=== PATIENT | male | born 1985 | race Two or more races ===

== ENCOUNTER 2018-11-08 22:32 | Emergency (ER) | payer SELFPAY ==
[2018-11-08 22:33] VITALS: BP 119/70
--- NOTE | 2018-11-08 22:41 | ER Report ---
History and Physical Time Seen By MD: 22:29 HPI/ROS CHIEF COMPLAINT: intoxication HISTORY OF PRESENT ILLNESS: This is a 33 year old male. He was found on the ground by his truck blocking the entrance of the [place]. 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 He was covered in emesis. He denies injuries or pain. He is alert and able to tell us where he is and what he did today. Denies any illnesses. Asking us to call his boss. Very animated, but cooperative otherwise. Allergies: Coded Allergies: No Known Allergies (Verified Allergy, Mild, 11/08/18) Home Meds Discontinued Reported Medications Sucralfate (Carafate) 1 Gm Tab, 1 GM PO ACHS, 0 Refills ON EMPTY STOMACH 04/12/08 Lansoprazole (Prevacid) 30 Mg Capsule.dr, 30 MG PO QDAY, 0 Refills 04/12/08 Sucralfate (Carafate) 1 G/10 Ml Oral.susp, 1 GM PO QID, #120 0 Refills 04/12/08 Lansoprazole (Prevacid) 30 Mg Capsule.dr, 30 MG PO QDAY, #30 0 Refills 04/12/08 Bupropion Hcl (Wellbutrin Xl) 300 Mg Tab.sr.24h, 300 MG PO QDAY, 0 Refills 04/12/08 Reviewed Nurses Notes: Yes Constitutional Vital Sign - Last 24 Hours 11/08/18 22:33 Temp 97.9 Pulse 84 Resp 20 B/P (MAP) 119/70 Pulse Ox 92 O2 Delivery Room Air Physical Exam General Appearance: The patient is alert. Intoxicated. Eyes: Pupils are equal, round. Reactive to light. No pallor, injection or icterus. Extraocular movements are intact. ENT: Mucous membranes are moist. Normal oral mucosa. Posterior oropharynx is normal. Normal tympanic membranes and canals. Neck: Supple and non tender. No lymphadenopathy. Respiratory: Lungs are clear to auscultation. Cardiovascular: Regular rate and rhythm. No murmurs, gallops or rubs. Normal capillary refill. Gastrointestinal: Abdomen is soft and non tender. Nondistended. Normal active bowel sounds. Neurological: Alert and oriented x3. Other than intoxicated, no deficits. Skin: Warm and dry. No rashes. Dirty from working, but otherwise no abrasions or lacerations noted. Musculoskeletal: Extremities are nontender. Full range of motion. No pain in pelvis. No tenderness in palpation of the cervical, thoracic and lumbar spine. DIFFERENTIAL DIAGNOSIS: After history and physical exam, differential diagnosis was considered for alcohol intoxication Medical Decision Making ED Course/Re-evaluation ED Course No other problems noted. He is being arrested by the police and at this time appears clear to be discharged with the police to assisted. Legal blood draw for law enforcement is being done. Decision to Disposition Date: Nov 08, 2018 Decision to Disposition Time: 22:36 Depart Departure Latest Vital Signs Vital Signs Date Time Temp Pulse Resp B/P (MAP) Pulse Ox O2 Delivery O2 Flow Rate FiO2 11/08/18 22:33 97.9 84 20 119/70 92 Room Air Impression: Primary Impression: Alcohol intoxication Condition: Improved Disposition: [facility] TO CORRECTION/CORRECTIONAL F New Scripts No Active Prescriptions or Reported Meds Patient Instructions: Alcohol Intoxication (ED) Problem Qualifiers Primary Impression: Alcohol intoxication Complication of substance-induced condition: uncomplicated Qualified Codes: F10.920 - Alcohol use, unspecified with intoxication, uncomplicated CARROLL CORDOBA MD Nov 08, 2018 22:41
== END 2018-11-08 22:58 ==
LOC: ER 22:39
DX: F10.920 Alcohol use, unspecified with intoxication, uncomplicated (principal)
CPT/HCPCS: 99281

== ENCOUNTER → 2018-11-08 | Outpatient (CLI) | payer SELFPAY ==
[~2018-11-08] MED LIST: BUPR300T55 PO; LANS30CA70 PO; SUC1 PO; SUCR1ORA13 PO
== END ==
LOC: AMB 22:15
PROVIDERS: ATTEND Nurse Practitioner
DX: R40.4 Transient alteration of awareness (principal); F10.129 Alcohol abuse with intoxication, unspecified
CPT/HCPCS: A0425; A0429